=== PATIENT | female | born 1955 ===

== ENCOUNTER 2017-05-06 11:19 | Emergency (ER) | payer MEDICAID ==
[2017-05-06 11:35] VITALS: BP 138/85; PULSE 63; RESP 18; TEMP 99; O2SAT 98
--- NOTE | 2017-05-06 12:14 | ED PDOC ---
HPI: General Adult Time Seen by Provider: 05/06/17 11:55 Chief Complaint (Nursing): Lower Extremity Problem/Injury Chief Complaint (Provider): Right sided neck, hip, and leg pain History Per: Patient History/Exam Limitations: no limitations Onset/Duration Of Symptoms: Days (x3 days) Current Symptoms Are (Timing): Still Present Additional Complaint(s): Pt is a 61 y/o female with a past medical history of herniated discs presents to the emergency department with a complaint of a left-sided neck and hip pain that radiates down to the left leg x3 days. Patient states she usually suffers from pain due to chronic herniated disc pain (present for several months) but pain had worsened within the last 3 days. Describes the pain is an 8/10. Reports taking Advil last night with minimal relief of pain. Denies dysuria. Past Medical History Reviewed: Historical Data, Nursing Documentation, Vital Signs Vital Signs: Last Vital Signs Temp 99 F 05/06/17 11:34 Pulse 63 05/06/17 11:34 Resp 18 05/06/17 11:34 BP 138/85 05/06/17 11:34 Pulse Ox 98 05/06/17 13:47 - Medical History PMH: Arthritis, HTN Other PMH: Herniated discs - Surgical History Surgical History: Cholecystectomy - Family History Family History: States: Diabetes (Mom) - Social History Current smoker - smoking cessation education provided: No Alcohol: None Drugs: Denies - Home Medications Home Medications: Ambulatory Orders Medication Instructions Recorded Acetaminophen [Tylenol 325mg tab] 2 tab PO Q6 PRN #60 tab 05/06/17 Naproxen [Anaprox DS] 1 tab PO Q12 PRN #30 tab 05/06/17 - Allergies Allergies/Adverse Reactions: Allergies Allergy/AdvReac Type Severity Reaction Status Date / Time No Known Allergies Allergy Verified 05/06/17 12:05 Review of Systems ROS Statement: Except As Marked, All Systems Reviewed And Found Negative Genitourinary Female: Negative for: Dysuria Musculoskeletal: Positive for: Neck Pain (Left), Leg Pain (Left), Other (Left hip pain) Physical Exam - Reviewed Nursing Documentation Reviewed: Yes Vital Signs Reviewed: Yes - Physical Exam Appears: Positive for: Non-toxic, No Acute Distress Head Exam: Positive for: ATRAUMATIC, NORMAL INSPECTION, NORMOCEPHALIC Skin: Positive for: Normal Color, Warm, Dry Neck: Positive for: Normal, Supple Cardiovascular/Chest: Positive for: Regular Rate, Rhythm. Negative for: Murmur Respiratory: Positive for: Normal Breath Sounds. Negative for: Accessory Muscle Use, Respiratory Distress Back: Positive for: Normal Inspection. Negative for: L CVA Tenderness, R CVA Tenderness Extremity: Positive for: Normal ROM, Tenderness (Tenderness to the PSIS. With some pain at a 60 degree angle with left leg raise. No neurovascular deficits.) Neurologic/Psych: Positive for: Alert, Oriented (x3) - ECG O2 Sat by Pulse Oximetry: 98 (RA) Pulse Ox Interpretation: Normal Medical Decision Making Medical Decision Making: Time: 1206 Initial impression: Left-sided body pains s/p herniated discs Initial plan: --Tylenol 975 mg PO --Toradol 30 mg IM --Lidocaine 5% 1 ea TD --Reevaluation Progress Notes: 1:37 PM - Pt feels better. Will d/c home. Upon provider reevaluation patient is feeling better, is medically stable, and requires no further treatment in the ED at this time. Patient will be discharged home with Rx for Tylenol 325 mg and Naproxen. Counseling was provided and all questions were answered regarding diagnosis and need for follow up with PMD. There is agreement to discharge plan. Return if symptoms persist or worsen. Clinical Impression: Herniated disc Scribe Attestation: Documented by Rena Lozano, acting as a scribe for Thierno Kohler MD. Provider Scribe Attestation: All medical record entries made by the Scribe were at my direction and personally dictated by me. I have reviewed the chart and agree that the record accurately reflects my personal performance of the history, physical exam, medical decision making, and the department course for this patient. I have also personally directed, reviewed, and agree with the discharge instructions and disposition. Disposition - Clinical Impression Clinical Impression: Herniated disc - Patient ED Disposition Is Patient to be Admitted: No Counseled Patient/Family Regarding: Diagnosis, Need For Followup - Disposition Referrals: [facility] [Outside] Disposition: Routine/Home Disposition Time: 13:37 Condition: IMPROVED Additional Instructions: Ms. Méndez, thank you for letting us take care of you today. Return to the ER if your symptoms worsen, or if any problems. Take the medication listed below as prescribed. You should be seen again by the doctor. Please call the [facility] at the phone number listed below to make an appointment. Prescriptions: Acetaminophen [Tylenol 325mg tab] 2 tab PO Q6 PRN #60 tab PRN Reason: Pain, Mild (1-3) Naproxen [Anaprox DS] 1 tab PO Q12 PRN #30 tab PRN Reason: Pain, Moderate (4-7) Instructions: Lumbar Disc Herniation (ED) Print Language: MAORI - POA Present On Arrival: None
[2017-05-06] MEDS ORDERED: Lidocaine 5% Patch TD ONE ×2 (12:23→12:30)
== END 2017-05-06 13:55 | disposition home or self-care (01) ==
LOC: H.ER 11:19
DX: M51.06 Intervertebral disc disorders with myelopathy, lumbar region (principal)
CPT/HCPCS: 96372; 99284; J1885